=== PATIENT | female | born 1965 | race Hispanic/Latino ===

== ENCOUNTER 2018-01-17 03:04 | Emergency (ER) | payer OTHER ==
[2018-01-17 03:19] VITALS: BP 126/81; PULSE 95; RESP 18; TEMP 98.8; O2SAT 97
[2018-01-17] MEDS ORDERED: Sodium Chloride 0.9% 1,000 ML IV STA (03:24)
--- NOTE | 2018-01-17 03:51 | ED PDOC ---
HPI: Abdomen Time Seen by Provider: 01/17/18 03:14 Chief Complaint (Nursing): Abdominal Pain Chief Complaint (Provider): Abdominal Pain History Per: Patient History/Exam Limitations: no limitations Current Symptoms Are (Timing): Intermittent Episodes Associated Symptoms: Fever (tactile), Constipation Additional Complaint(s): 52 year old female with PMHx of diverticulitis presents to the ER for an evaluation of worsening abdominal pain since 6pm yesterday associated with tactile fever. She reports the symptoms began after completing her antibiotics for cyst removal which caused her to feel constipated, which she presumes flared her diverticulitis. She reports at baseline her pain is 6-7/10 and when she feels intermittent cramping it is 10/10. Patient had a normal bowel movement this morning. She took no medicines for relief [employer]. Denies nausea, vomiting, diarrhea, recent travel, urinary symptoms, flank pain, chest pain or shortness of breath. PMD: No Family Provider LNMP: 6 weeks ago Abnormal Vaginal Bleeding: No Last Menstral Period: 6 weeks ago Past Medical History Reviewed: Historical Data, Nursing Documentation, Vital Signs Vital Signs: Last Vital Signs Temp 98.8 F 01/17/18 03:12 Pulse 95 H 01/17/18 03:12 Resp 18 01/17/18 03:12 BP 126/81 01/17/18 03:12 Pulse Ox 97 01/17/18 05:38 - Medical History PMH: Diverticulitis (with diverticulosis) - Surgical History Surgical History: Appendectomy, Other surgeries: laparoscopy for endometriosis - Family History Family History: States: Unknown Family Hx - Social History Alcohol: Occasional Drugs: Denies - Home Medications Home Medications: Ambulatory Orders Medication Instructions Recorded Mupirocin 2% Cream [Bactroban 1 gm TOP DAILY #1 tube 10/31/14 Cream] Dicyclomine [Bentyl] 20 mg PO BID PRN #30 tab 05/24/15 Ibuprofen [Motrin Tab] 800 mg PO Q8H PRN #60 tab 05/24/15 Sulfamethoxazole/Trimethoprim 2 tab PO BID #40 tab 05/24/15 [Bactrim DS 800 mg-160 mg] metroNIDAZOLE [Flagyl] 500 mg PO TID #30 tab 05/24/15 Dicyclomine [Bentyl] 20 mg PO BID PRN #30 tab 08/03/15 Levofloxacin [Levaquin] 750 mg PO DAILY #10 tablet 08/03/15 Ondansetron [Zofran] 4 mg PO Q8H PRN #30 tab 08/03/15 metroNIDAZOLE [Flagyl] 500 mg PO TID #30 tab 08/03/15 Dicyclomine [Bentyl] 20 mg PO Q12 PRN #20 tab 01/05/16 metroNIDAZOLE [Flagyl] 500 mg PO Q12 #14 tab 01/05/16 Docusate [Colace] 100 mg PO BID PRN #14 cap 01/17/18 Ibuprofen [Motrin Tab] 800 mg PO Q8 PRN #21 tab 01/17/18 Sulfamethoxazole/Trimethoprim 1 tab PO BID #14 tab 01/17/18 [Bactrim DS 800 mg-160 mg] - Allergies Allergies/Adverse Reactions: Allergies Allergy/AdvReac Type Severity Reaction Status Date / Time iodine Allergy RASH Verified 01/17/18 03:11 Iodine and Iodide Containing Allergy RASH Verified 01/17/18 03:11 Produc levofloxacin [From Levaquin] AdvReac "tendon Verified 01/17/18 03:19 ruptures" lidocaine AdvReac "slow Verified 01/17/18 03:11 heart rate, makes me feel drugged" Review of Systems ROS Statement: Except As Marked, All Systems Reviewed And Found Negative Constitutional: Positive for: Fever. Negative for: Chills Cardiovascular: Negative for: Chest Pain Respiratory: Negative for: Shortness of Breath Gastrointestinal: Positive for: Abdominal Pain, Constipation. Negative for: Nausea, Vomiting, Diarrhea Genitourinary Female: Negative for: Dysuria, Frequency, Incontinence, Hematuria Musculoskeletal: Negative for: Back Pain Physical Exam - Reviewed Nursing Documentation Reviewed: Yes Vital Signs Reviewed: Yes - Physical Exam Comments: GENERAL APPEARANCE: Patient is awake, alert, oriented x 3, in no acute distress , resting comfortably. SKIN: Warm, dry; (-) cyanosis. EYES: (-) conjunctival pallor, (-) scleral icterus. ENMT: Mucous membranes moist. Airway patent, (-) stridor. NECK: Supple, FROM CHEST AND RESPIRATORY: (-) rales, (-) rhonchi, (-) wheezes; breath sounds equal bilaterally. Respirations even and nonlabored, speaking in full sentences. HEART AND CARDIOVASCULAR: (-) irregularity ABDOMEN AND GI: Soft (-) distention. Bowel sounds active x4; (+) LLQ tenderness (-) guarding, (-) rebound, (-) palpable masses, (-) CVA tenderness. EXTREMITIES: (-) deformity, (-) edema, (+) distal pulses. NEURO AND PSYCH: Mental status as above; (-) focal findings (-) facial asymmetry. Gait: steady. Speech: clear. - Laboratory Results Result Diagrams: 01/17/18 03:51 01/17/18 03:51 Urine dip results: Positive for: Ketones (15). Negative for: Leukocyte Esterase , Blood, Nitrate, Glucose, Bilirubin, Protein - ECG O2 Sat by Pulse Oximetry: 97 (RA) Pulse Ox Interpretation: Normal Medical Decision Making Medical Decision Making: Time: 329 Initial Impression: acute abdominal pain, concern for diverticulitis Initial Plan: --CMP --Lipase --ED Urine --ED Urine Dipstick --CBC w/ Differential --Motrin 800mg (per request of patient) --Normal Saline 999 mls/hr --Pepcid 20mg --Blood Culture --Regional Driver --IV Insertion --Reevaluation 0440 Labs, Udip grossly unremarkable. Bactrim 800mg PO ordered for probable diverticulitis. On re-evaluation, patient reports improvement of symptoms. Tolerating PO intake. On exam, patient remains AAOx3, in no acute distress. Lungs clear to auscultation, cardiac RRR, abdomen soft, non-tender, repeat neuro exam shows no focal findings. VSS, stable for discharge. Lab/Diagnostic results d/w the patient in great detail. Diagnosis of acute abdominal pain, probable diverticulitis d/w the patient. Based on history, exam and diagnostic results, plan will be for outpatient follow up. Patient instructed to follow-up with pmd / referral provided / the clinic in 1- 2 days without fail. Advised to take medication as prescribed. Return to the emergency room at any time for any new or worsening symptoms. Patient states she fully agrees with and understands discharge instructions. States that she agrees with the plan and disposition. Verbalized and repeated discharge instructions and plan. I have given the patient opportunity to ask any additional questions. Scribe Attestation: Documented by Bhakti Valentino, acting as a scribe for Juana Suresh PA-C. Provider Scribe Attestation: All medical record entries made by the Scribe were at my direction and personally dictated by me. I have reviewed the chart and agree that the record accurately reflects my personal performance of the history, physical exam, medical decision making, and the department course for this patient. I have also personally directed, reviewed, and agree with the discharge instructions and disposition. Disposition - Clinical Impression Clinical Impression: Abdominal pain, Diverticulitis - Patient ED Disposition Is Patient to be Admitted: No Counseled Patient/Family Regarding: Studies Performed, Diagnosis, Need For Followup, Rx Given - Disposition Referrals: Freedom Zimmerman MD [Medical Doctor] - Disposition: Routine/Home Disposition Time: 05:06 Condition: STABLE Additional Instructions: The emergency medical care you received today was directed towards the acute presenting symptoms. If you were prescribed any medication, please fill it and give as directed. It may take several days for your symptoms to resolve. Return to the Emergency Department at any time if symptoms worsen, do not improve, or if any other problems arise. Please contact your doctor in 2 days for re-evaluation and follow up / or call one of the physicians/clinics you have been referred to that are listed on the Patient Visit Information form that is included in your discharge packet. Bring any paperwork you were given at discharge with you along with any medications to your follow up visit. Our treatment cannot replace ongoing medical care by a primary care provider (PCP) outside of the emergency department. Prescriptions: Docusate [Colace] 100 mg PO BID PRN #14 cap PRN Reason: Constipation Ibuprofen [Motrin Tab] 800 mg PO Q8 PRN #21 tab PRN Reason: Pain, Moderate (4-7) Sulfamethoxazole/Trimethoprim [Bactrim DS 800 mg-160 mg] 1 tab PO BID #14 tab Instructions: Acute Abdomen (Belly Pain), Adult (DC), Diverticulitis Forms: [employer] (Slovenian) Print Language: MOLDOVAN - POA Present On Arrival: None Results - Lab Results Lab Results: 01/17/18 01/17/18 03:51 03:51 WBC 10.0 RBC 4.45 Hgb 13.8 Hct 39.3 MCV 88.3 MCH 31.1 H MCHC 35.2 RDW 13.5 Plt Count 219 MPV 8.3 Neut % (Auto) 77.7 H Lymph % (Auto) 12.3 L [place] % (Auto) 8.6 Eos % (Auto) 1.0 Baso % (Auto) 0.4 Neut # (Auto) 7.8 H Lymph # (Auto) 1.2 [place] # (Auto) 0.9 H Eos # (Auto) 0.1 Baso # (Auto) 0.0 Sodium 140 Potassium 3.7 Chloride 106 Carbon Dioxide 23 Anion Gap 15 BUN 13 Creatinine 0.6 L Est GFR ( Amer) > 60 Est GFR (Non-Af Amer) > 60 Random Glucose 131 H Calcium 8.8 Total Bilirubin 0.6 AST 30 ALT 32 Alkaline Phosphatase 57 Total Protein 7.5 Albumin 4.1 Globulin 3.5 Albumin/Globulin Ratio 1.2 Lipase 126
[2018-01-17 03:55] LABS: BASO % 0.4 % (0.0-2.0); EOS # 0.1 K/uL (0.0-0.7); HEMOGLOBIN 13.8 g/dL (12.0-16.0); LYMPH # 1.2 K/uL (1.0-4.3); LYMPH % 12.3 % (20.0-40.0); MEAN CELL VOLUME 88.3 fl (81.0-99.0); MEAN CORPUSCULAR HEMOGLOBIN 31.1 pg (27.0-31.0); MEAN CORPUSCULAR HGB CONC 35.2 g/dL (33.0-37.0); MEAN PLATELET VOLUME 8.3 fl (7.2-11.7); MONO # 0.9 K/uL (0.0-0.8); MONO % 8.6 % (0.0-10.0); NEUT # 7.8 K/uL (1.8-7.0); NEUT % 77.7 % (50.0-75.0); NRBC % 0.1 % (0.0-0.0); RBC 4.45 Mil/uL (3.80-5.20); RED CELL DISTRIBUTION WIDTH 13.5 % (11.5-14.5)
[2018-01-17 04:06] LABS: ALB/GLOB RATIO 1.2 (1.0-2.1); ALBUMIN 4.1 g/dL (3.5-5.0); ALT/SGPT 32 U/L (9-52); AST/SGOT 30 U/L (14-36); BLOOD UREA NITROGEN 13 mg/dl (7-17); CALCIUM 8.8 mg/dL (8.4-10.2); GFR NON-AFRICAN AMERICAN > 60; LIPASE 126 U/L (23-300)
[2018-01-17] MEDS ORDERED: Tmp-Smz 800 mg-160 mg DS Tab PO STA (05:07)
[2018-01-17] MEDS ORDERED: Tmp-Smz 800 mg-160 mg DS Tab ONE (05:15)
== END 2018-01-17 05:46 | disposition home or self-care (01) ==
LOC: H.ER 03:04
DX: K57.92 Diverticulitis of intestine, part unspecified, without perforation or abscess without bleeding (principal); R10.9 Unspecified abdominal pain